=== PATIENT | female | born 1960 | race Caucasian/White ===

== ENCOUNTER 2025-01-17 07:52 | Day surgery (SDC) | payer MEDICARE ==
[~2025-01-17 07:52] MED LIST: Metoclopramide 10 MG/2 ML SDV IV PRN
[2025-01-17] MEDS: Sodium Chloride 0.9% 1,000 ML IV SCH (08:19)
[2025-01-17] MEDS ORDERED: Propofol 200 MG/20 ML SDV ONE (09:30)
== END 2025-01-17 10:25 | disposition home or self-care (01) ==
LOC: LB.SDS 07:52
PROVIDERS: ATTEND Surgery
DX: Z12.11 Encounter for screening for malignant neoplasm of colon (principal); Z12.12 Encounter for screening for malignant neoplasm of rectum
CPT/HCPCS: J2704; J7030

== ENCOUNTER 2025-01-26 12:21 | Emergency (ER) | payer MEDICARE ==
[2025-01-26] MEDS: Lidocaine 1% with EPINEPHrine 1:100,000 20 ML MDV INJECT ONE (13:08)
[2025-01-26] MEDS: Diphtheria,Pertussis(Acell),Tetanus Vaccine 0.5 ML Syringe IM ONE (13:24)
== END 2025-01-26 13:25 | disposition home or self-care (01) ==
LOC: LB.ED 12:21
DX: S61.412A Laceration without foreign body of left hand, initial encounter (principal); Z23 Encounter for immunization; I11.0 Hypertensive heart disease with heart failure; I50.9 Heart failure, unspecified; Z88.8 Allergy status to other drugs, medicaments and biological substances; Z79.899 Other long term (current) drug therapy; Z90.49 Acquired absence of other specified parts of digestive tract; W26.0XXA Contact with knife, initial encounter
CPT/HCPCS: 12001; 90471; 90715; 99282-25; 99283; J2004

== ENCOUNTER 2025-04-25 12:54 | Emergency (ER) | payer MEDICARE ==
[2025-04-25] MEDS ORDERED: Sodium Chloride 0.9% 10 ML Syringe FLUSH PRN (13:12)
[2025-04-25] MEDS: Ondansetron 4 MG/2 ML SDV IVPUSH ONE (13:15)
[2025-04-25 13:39] LABS: BASOPHILS ABSOLUTE AUTO 0.05 K/uL (0.02-0.10); BASOPHILS PERCENT AUTO 0.5 % (0.0-0.5); EOSINOPHILS ABSOLUTE AUTO 0.19 K/uL (0.04-0.40); EOSINOPHILS PERCENT AUTO 1.9 % (1.0-5.0); LYMPHOCYTES ABSOLUTE AUTO 1.91 K/uL (1.50-4.00); LYMPHOCYTES PERCENT AUTO 19.5 % (20.0-40.0); MEAN PLATELET VOLUME 9.7 fL (6.0-10.0); MONOCYTES ABSOLUTE AUTO 0.81 K/uL (0.20-0.80); MONOCYTES PERCENT AUTO 8.3 % (3.0-10.0); NEUTROPHILS ABSOLUTE AUTO 6.81 K/uL (2.00-7.50); NEUTROPHILS PERCENT AUTO 69.8 % (45.0-70.0); PLATELET COUNT,PLT 348 K/uL (150-500); RED BLOOD CELL COUNT 4.19 M/uL (3.80-5.80); RED CELL DISTRIBUTION WIDTH 12.2 % (11.0-16.0); WHITE BLOOD CELL COUNT,WBC 9.8 K/uL (4.0-11.0)
[2025-04-25 14:00] LABS: A/G RATIO 1.0 (0.8-2.0); ALANINE AMINOTRANSFERASE,ALT 31.0 U/L (12-78); ASPARTATE AMNIOTRANSFERASE,AST 17.0 U/L (15-37); BILIRUBIN TOTAL 0.3 mg/dL (0.0-1.0); BLOOD UREA NITROGEN,BUN 16.0 mg/dL (8-26); CARBON DIOXIDE,CO2 26.9 mmol/L (21.0-32.0); CHLORIDE,CL 102.0 mmol/L (98-107); CREATININE 0.68 mg/dL (0.55-1.02); EST CRCL DRUG DOSING (CG) 80.98 mL/min; ESTIMATED GFR 95.0 mL/min (>60); GLUCOSE RANDOM 148.0 mg/dL (74-100); PROTEIN TOTAL,TP 6.9 g/dL (6.4-8.2); SODIUM,NA 141.0 mmol/L (136-145); TROPONIN I HIGH SENSITIVITY 5.0 pg/ml (<=60.4)
[2025-04-25 14:02] LABS: POTASSIUM,K 2.9 mmol/L (3.5-5.1)
[2025-04-25 14:20] LABS: APPEARANCE,URINE CLEAR (CLEAR); GLUCOSE,URINE NEGATIVE (NEGATIVE); OCCULT BLOOD,URINE NEGATIVE (NEGATIVE)
[2025-04-25 14:25] LABS: EPITHELIAL CELLS,URINE OCCASIONAL /HPF
[2025-04-25] MEDS: Potassium Chloride 10% 20 MEQ/15 ML Soln 15 ML UD Cup PO ONE (14:31)
[2025-04-25] MEDS: Potassium Chloride 20 MEQ Tab.ER PO ONE (14:31)
== END 2025-04-25 15:07 | disposition home or self-care (01) ==
LOC: LB.ED 12:54
DX: N30.00 Acute cystitis without hematuria (principal); I11.0 Hypertensive heart disease with heart failure; I50.9 Heart failure, unspecified; E78.00 Pure hypercholesterolemia, unspecified; Z90.49 Acquired absence of other specified parts of digestive tract; Z87.891 Personal history of nicotine dependence; Z88.5 Allergy status to narcotic agent; Z79.899 Other long term (current) drug therapy
CPT/HCPCS: 36415; 70450; 80053; 81001; 84484; 85025; 87086; 93005; 96374; 99283; 99284-25; A9270-GY; J2405